=== PATIENT | male | born 1980 | race African-American/Black ===

== ENCOUNTER 2023-06-15 04:30 | Emergency (ER) | payer BC ==
[~2023-06-15] VITALS: Ht 188 cm; Wt 120.0 kg
[2023-06-15 04:43] VITALS: TEMP 98.2; O2SAT 100
[2023-06-15 05:30] VITALS: BP 126/66; PULSE 100; RESP 18
[2023-06-15] MEDS ORDERED: LIDOCAINE 5% PATCH TOP SCH (05:30)
[2023-06-15] MEDS ORDERED: KETOROLAC 60MG/2ML VIAL IM ONE (05:30)
[2023-06-15] MEDS ORDERED: IBUP-2028 MT (05:35)
[2023-06-15] MEDS ORDERED: LIDO700A30 TP (05:35)
== END 2023-06-15 06:56 | disposition home or self-care (01) ==
LOC: ER 04:30
DX: S20.219A Contusion of unspecified front wall of thorax, initial encounter (principal); E11.9 Type 2 diabetes mellitus without complications; X58.XXXA Exposure to other specified factors, initial encounter; Y93.89 Activity, other specified; Y92.89 Other specified places as the place of occurrence of the external cause; Y99.8 Other external cause status
CPT/HCPCS: 99283; 71045; 96372; J1885